=== PATIENT | female | born 1940 | race Caucasian/White ===

== ENCOUNTER 2024-08-03 20:44 | Emergency (ER) | payer MEDICARE, OTHER ==
[~2024-08-03] VITALS: Ht 167.6 cm; Wt 77.1 kg
[2024-08-03 21:41] VITALS: BP 138/72; O2SAT 98
[2024-08-03] MEDS ORDERED: ACET-2605 PO (22:55)
[2024-08-03 23:44] VITALS: TEMP 94.4
== END 2024-08-04 06:32 ==
LOC: ER 20:50
DX: S00.83XA Contusion of other part of head, initial encounter (principal); I10 Essential (primary) hypertension; Z88.1 Allergy status to other antibiotic agents; Z88.8 Allergy status to other drugs, medicaments and biological substances; Z91.041 Radiographic dye allergy status; W01.0XXA Fall on same level from slipping, tripping and stumbling without subsequent striking against object, initial encounter; Y93.89 Activity, other specified; Y92.89 Other specified places as the place of occurrence of the external cause; Y99.8 Other external cause status
CPT/HCPCS: 70450-TC; 71045-TC; 73502; 73564-TC

== ENCOUNTER 2024-08-13 03:21 | Inpatient (IN) | payer MEDICARE, OTHER ==
[~2024-08-13] VITALS: Ht 170.2 cm; Wt 65.8 kg
[~2024-08-13 03:21] MED LIST: ACET-2605 PO
[2024-08-13 04:04] LABS: BASOPHILS # (AUTO) 0.1 K/uL (0.0-0.2); BASOPHILS % (AUTO) 1.1 % (0.0-2.0); EOSINOPHILS # (AUTO) 0.2 K/uL (0.0-0.7); EOSINOPHILS % (AUTO) 1.6 % (0.0-6.0); HEMATOCRIT 33 % (33-45); HEMOGLOBIN 11.2 g/dL (11.5-14.8); LYMPHOCYTES # (AUTO) 4.3 K/uL (0.8-4.8); LYMPHOCYTES % (AUTO) 34.7 % (20.0-44.0); MEAN CORPUSCULAR HEMOGLOBIN 30 PG (26.0-33.0); MEAN CORPUSCULAR HGB CONC 34 g/dl (31.0-36.0); MEAN CORPUSCULAR VOLUME 87 fL (82-100); MONOCYTES # (AUTO) 0.7 K/uL (0.1-1.30); MONOCYTES % (AUTO) 5.9 % (2.0-12.0); NEUTROPHILS % (AUTO) 56.7 % (43.0-81.0); PLATELET COUNT (AUTO) 487 K/uL (150-450); RED BLOOD CELL COUNT(AUTO) 3.73 MIL/uL (4.0-5.2); RED CELL DISTRIBUTION WIDTH 14.5 % (11.5-15.0); WHITE BLOOD COUNT (AUTO) 12.4 K/uL (4.3-11.0)
[2024-08-13 04:05] LABS: APPEARANCE,URINE CLEAR (CLEAR); BILIRUBIN,URINE NEGATIVE (NEGATIVE); BLOOD, URINE 1+ Ery/uL (NEGATIVE); COLOR,URINE YELLOW (YELLOW); KETONES,URINE NEGATIVE (NEGATIVE); LEUKOCYTE ESTERASE ,URINE NEGATIVE (NEGATIVE); NITRITE, URINE NEGATIVE (NEGATIVE); PROTEIN,URINE NEGATIVE (NEGATIVE); UGLUCOSE NEGATIVE (NEGATIVE); UROBILINOGEN,URINE 0.2 EU/dL (0.2)
[2024-08-13 04:15] LABS: CALCIUM, SERUM 8.8 mg/dL (8.5-10.1); CARBON DIOXIDE 27 mmol/L (21-32); CHLORIDE 102 mmol/L (98-107); CREATININE 0.6 mg/dL (0.6-1.3); GLUCOSE 161 mg/dL (74-106); POTASSIUM 3.5 mmol/L (3.5-5.1); SODIUM SERUM 136 mmol/L (136-145); UREA NITROGEN, BLOOD 9 mg/dL (7-18)
[2024-08-13 04:20] LABS: ALANINE AMINOTRANSFERASE 22 U/L (12-78); ALBUMIN 3.2 g/dL (3.4-5.0); ALCOHOL, BLOOD < 3 mg/dL (0-10); ALKALINE PHOSPHATASE 202 U/L (46-116); ASPARTATE AMINOTRANSFERASE 13 U/L (15-37); BILIRUBIN,DIRECT 0.1 mg/dL (0.0-0.2); BILIRUBIN,TOTAL 0.4 mg/dL (0.2-1.0); TOTAL PROTEIN, SERUM 6.4 g/dL (6.4-8.2)
[2024-08-13 04:22] LABS: ACETAMINOPHEN <10 ug/ml (10-30); SALICYLATE 0.8 mg/dL (2.8-20.0)
[2024-08-13 04:25] LABS: AMPHETAMINE, URINE NEGATIVE (NEGATIVE); BARBITURATE, URINE NEGATIVE (NEGATIVE); BENZODIAZEPINE, URINE NEGATIVE (NEGATIVE); CANNABINOID, URINE NEGATIVE (NEGATIVE); COCCAINE, URINE NEGATIVE (NEGATIVE); OPIATE, URINE NEGATIVE (NEGATIVE); PHENCYCLIDINE SCREEN,URINE NEGATIVE (NEGATIVE)
[2024-08-13 04:34] LABS: SQUAMOUS EPITHELIAL CELL,UR Many /HPF (None Seen)
[2024-08-13 04:36] LABS: ADD URINE CULTURE YES
[2024-08-13 04:37] LABS: BACTERIA,URINE Many /HPF (None Seen); COARSE GRANULAR CASTS,URINE Few /LPF (None Seen)
[2024-08-13] MEDS ORDERED: CEFTRIAXONE 1GM BAG (ER ONLY) 50 ML IV ONE (05:43)
[2024-08-13] MEDS: CEFTRIAXONE 1GM BAG (ER ONLY) 1 GM/50 ML PIGGYBACK IV ONE (05:54)
[2024-08-13] MEDS ORDERED: ACETAMINOPHEN 325 MG TABLET PO PRN (06:00)
[2024-08-13] MEDS ORDERED: MAGNESIUM HYDROXIDE 30 ML UDC PO PRN (06:00)
[2024-08-13] MEDS ORDERED: MAG HYDROX/AL HYDROX/SIMETH 30 ML UDC PO PRN (06:00)
[2024-08-13] MEDS ORDERED: ONDANSETRON HCL/PF 4 MG/2 ML VIAL IVP PRN (06:00)
[2024-08-13 07:00] VITALS: BP 164/53; TEMP 97.3; O2SAT 97
[2024-08-13] MEDS: PANTOPRAZOLE 40 MG TABLET.DR PO SCH (07:30)
[2024-08-13] MEDS ORDERED: PANTOPRAZOLE 40 MG TABLET.DR PO ONE (07:40)
[2024-08-13] MEDS: IV NS 0.9% 1,000 ML IV PRN (09:21)
[2024-08-13] MEDS ORDERED: APIX2.5T PO (10:13)
[2024-08-13] MEDS ORDERED: CLON0.1T PO (10:13)
[2024-08-13] MEDS ORDERED: LEVO50TA8 PO (10:13)
[2024-08-13] MEDS ORDERED: NEBI10TA2 PO (10:13)
[2024-08-13] MEDS ORDERED: HYDR-3973 PO (10:13)
[2024-08-13] MEDS ORDERED: PANT40TA49 PO (10:13)
[2024-08-13] MEDS ORDERED: DONE5TAB34 PO (10:13)
[2024-08-13] MEDS ORDERED: LEVE500T20 PO (10:13)
[2024-08-13] MEDS ORDERED: ACET325T53 PO (10:13)
[2024-08-13] MEDS ORDERED: BISA10SU11 RC (10:13)
[2024-08-13] MEDS ORDERED: MAGN400O6 PO (10:13)
[2024-08-13] MEDS ORDERED: LOSA50TA39 PO (10:13)
[2024-08-13] MEDS ORDERED: POVI1MED TP (10:13)
[2024-08-13 11:30] VITALS: BP 170/68; TEMP 97.3; O2SAT 96
[2024-08-13] MEDS ORDERED: OLANZAPINE 2.5 MG TABLET PO PRN (11:30)
[2024-08-13] MEDS: OLANZAPINE 10 MG VIAL IM PRN (11:36)
[2024-08-13 12:07] VITALS: BP_SYST 158; BP_SYST 164; BP_DIAS 73; TEMP 97.3; O2SAT 97
[2024-08-13] MEDS: DIVALPROEX SODIUM 125 MG CAP.SPRINK PO SCH (12:44)
[2024-08-14] MEDS ORDERED: CEFTRIAXONE 1 G in IV D5W 50 ML IV SCH (06:00)
== END 2024-08-13 16:30 | disposition left against medical advice (07) | DRG 689 ==
LOC: ER 03:23 → MED 08:25
PROVIDERS: ADMIT Internal Medicine; ATTEND Internal Medicine
DX: N39.0 Urinary tract infection, site not specified (principal); G93.41 Metabolic encephalopathy; F05 Delirium due to known physiological condition; I10 Essential (primary) hypertension; E78.5 Hyperlipidemia, unspecified; Z53.29 Procedure and treatment not carried out because of patient's decision for other reasons; F29 Unspecified psychosis not due to a substance or known physiological condition; Z20.822 Contact with and (suspected) exposure to COVID-19; F39 Unspecified mood [affective] disorder
CPT/HCPCS: 36415; 71045-TC; 80048-TC; 80076-TC; 81001; 85025-TC; 87081-TC; 87086-TC; A4223; G0378; G0480; J0696; J3490; J7030; J7060